=== PATIENT | male | born 1995 | race Two or more races ===

== ENCOUNTER 2019-05-28 18:59 | Emergency (ER) | payer SELFPAY ==
[~2019-05-28] VITALS: Ht 170.2 cm; Wt 61.2 kg
[2019-05-28 20:20] VITALS: BP 124/77
[2019-05-28] MEDS ORDERED: ACETAMINOPHEN/CODEINE#3 (300/30mg) TAB PO ONE (20:30)
[2019-05-28] MEDS ORDERED: IBUPROFEN 800 MG TAB PO ONE (20:30)
== END 2019-05-28 21:00 | disposition home or self-care (01) ==
LOC: ER 18:59
DX: S66.911A Strain of unspecified muscle, fascia and tendon at wrist and hand level, right hand, initial encounter (principal); X50.0XXA Overexertion from strenuous movement or load, initial encounter; Y93.89 Activity, other specified; Y92.89 Other specified places as the place of occurrence of the external cause; Y99.0 Civilian activity done for income or pay
CPT/HCPCS: 73110

== ENCOUNTER → 2019-11-24 | Emergency (ER) | payer MEDICAID ==
[~2019-11-24] VITALS: Ht 172.7 cm; Wt 67.1 kg
[2019-11-24 22:17] VITALS: BP 122/83
== END | disposition home or self-care (01) ==
LOC: ER 22:11
DX: G56.01 Carpal tunnel syndrome, right upper limb (principal)
CPT/HCPCS: 73100

== ENCOUNTER 2020-11-11 14:38 | Emergency (ER) | payer SELFPAY ==
[~2020-11-11] VITALS: Ht 170.2 cm; Wt 67.1 kg
[2020-11-11 14:39] VITALS: BP 148/94
[2020-11-11 16:15] LABS: Urine Bacteria NONE SEEN /hpf (None Seen); Urine Blood TRACE /uL (Negative); Urine Mucus FEW (None Seen); Urine Specific Gravity 1.036 (1.001-1.035); Urine WBC 55 /hpf (0 - 3)
== END 2020-11-11 16:22 | disposition home or self-care (01) ==
LOC: ER 14:39
DX: N39.0 Urinary tract infection, site not specified (principal); I88.0 Nonspecific mesenteric lymphadenitis; K76.0 Fatty (change of) liver, not elsewhere classified
CPT/HCPCS: 74176; 81001

== ENCOUNTER 2020-12-10 04:36 | Emergency (ER) | payer MEDICAID, OTHER ==
[~2020-12-10] VITALS: Ht 175.3 cm; Wt 77.1 kg
[2020-12-10 06:00] LABS: Basophils # (auto) 0 10 ^3/uL (0-0.2); Basophils % (auto) 0.4 % (0.0-2.0); Eosinophils # (auto) 0.6 10 ^3/uL (0-0.8); Eosinophils % (auto) 6.3 % (0.0-7.0); Hematocrit 42.3 % (41.0-53.0); Hemoglobin 14.6 g/dL (13.5-17.5); Lymphocytes # (auto) 2.8 10 ^3/uL (0.4-5.4); Lymphocytes % (auto) 31.7 % (10.0-50.0); Mean Corpuscular Hgb Conc. 34.4 g/dL (32.0-36.0); Mean Corpuscular Volume 87.2 fL (80.0-100.0); Monocytes # (auto) 1.1 10 ^3/uL (0-1.3); Monocytes % (auto) 12.2 % (0.0-12.0); Neutrophils # (auto) 4.3 10 ^3/uL (1.6-8.6); Neutrophils % (auto) 49.4 % (37.0-80.0); Platelet Count (auto) 221 10^3/uL (140-450); Red Blood Cells 4.85 10^6/uL (4.5-5.90); White Blood Cell 8.8 10^3/uL (4.4-10.8)
[2020-12-10 06:11] LABS: Alanine Aminotransferase 40 U/L (16-61); Albumin 3.6 g/dL (3.4-5.0); Anion Gap 5 (5-15); Aspartate Aminotransferase 17 U/L (15-37); Blood Urea Nitrogen 15 mg/dL (7-18); Calcium 8.3 mg/dL (8.5-10.1); Carbon Dioxide 27 mmol/L (21-32); Chloride 108 mmol/L (98-107); Glucose 100 mg/dL (74-106); Magnesium 2.7 mg/dL (1.6-2.6); Potassium 3.6 mmol/L (3.5-5.1); Sodium 140 mmol/L (136-145)
[2020-12-10 06:17] LABS: Alkaline Phosphatase 99 U/L (45-117); BUN/Creatinine Ratio 20.8; Bilirubin, Total 0.3 mg/dL (0.2-1.0); GFR African American 174 mL/min; GFR Non-African American 144 mL/min; Total Protein 7.4 g/dL (6.4-8.2)
[2020-12-10] MEDS ORDERED: SODIUM CHLORIDE 0.9% 1,000 ML IV ONE (06:30)
[2020-12-10] MEDS ORDERED: SODIUM CHLORIDE 0.9% 500 ML IV ONE (06:30)
[2020-12-10 07:13] LABS: INR 0.92 (0.9-1.15); Partial Thromboplastin Time 31.4 sec (23.0-31.2)
[2020-12-10 08:01] LABS: Urine Bacteria NONE SEEN /hpf (None Seen); Urine Blood Negative /uL (Negative); Urine Specific Gravity 1.026 (1.001-1.035); Urine WBC 2 /hpf (0 - 3)
[2020-12-10 08:28] LABS: Alcohol, Urine < 3.0 mg/dL (0-10); Amphetamine Screen, Urine NEGATIVE (NEGATIVE); Barbiturate Scree,Urine NEGATIVE (NEGATIVE); Benzodiazephine Screen, Urine NEGATIVE (NEGATIVE); Cannabinoid Screen, Urine NEGATIVE (NEGATIVE); Cocaine Screen, Urine POSITIVE (NEGATIVE); Opiate Scree,Urine NEGATIVE (NEGATIVE); Phencyclidine Screen, Urine NEGATIVE (NEGATIVE)
[2020-12-10 12:00] VITALS: BP 114/58
== END 2020-12-10 12:49 | disposition home or self-care (01) ==
LOC: ER 04:36
DX: R07.89 Other chest pain (principal); F41.8 Other specified anxiety disorders; F14.10 Cocaine abuse, uncomplicated; E03.9 Hypothyroidism, unspecified; I48.92 Unspecified atrial flutter
CPT/HCPCS: 36415; 71045; 80053; 80307; 81001; 83735; 84443; 84484; 85025; 85610; 85730; 93005; 96360; 99285; J7030; J7040

== ENCOUNTER 2022-06-21 00:20 | Emergency (ER) | payer MEDICAID ==
[~2022-06-21] VITALS: Ht 170.2 cm; Wt 76.3 kg
[2022-06-21 00:38] VITALS: BP 139/89
[2022-06-21] MEDS ORDERED: AMOXICILLIN/CLAVUL 875 MG TAB PO ONE (00:45)
[2022-06-21] MEDS ORDERED: KETOROLAC TROMETH 60MG/2ML VIAL IM ONE (00:45)
[2022-06-21] MEDS ORDERED: HYDROcodone-ACET 10/325MG TAB PO ONE (00:45)
[2022-06-21] MEDS ORDERED: IBUP800T26 PO (00:52)
[2022-06-21] MEDS ORDERED: HYDR-4798 PO (00:52)
[2022-06-21] MEDS ORDERED: AMOX-277 PO (00:52)
== END 2022-06-21 01:48 | disposition home or self-care (01) ==
LOC: ER 00:20
DX: S02.5XXA Fracture of tooth (traumatic), initial encounter for closed fracture (principal); K04.7 Periapical abscess without sinus; F41.9 Anxiety disorder, unspecified; F15.90 Other stimulant use, unspecified, uncomplicated; X58.XXXA Exposure to other specified factors, initial encounter; Y93.89 Activity, other specified; Y92.89 Other specified places as the place of occurrence of the external cause; Y99.8 Other external cause status
CPT/HCPCS: 96372; 99283; J1885